=== PATIENT | male | born 1950 | race Caucasian/White ===

== ENCOUNTER 2018-11-12 09:09 | Emergency (ER) | payer MEDICARE, OTHER ==
[~2018-11-12] VITALS: Ht 172.7 cm; Wt 81.6 kg
[2018-11-12 09:17] VITALS: BP 167/87
--- NOTE | 2018-11-12 09:31 | NUR ---
seen and evaluated by dr medrano. medically cleared. d/c home in stable condition.
== END 2018-11-12 09:33 | disposition home or self-care (01) ==
LOC: ER 09:11
DX: Z04.1 Encounter for examination and observation following transport accident (principal); V49.49XA Driver injured in collision with other motor vehicles in traffic accident, initial encounter; Y93.89 Activity, other specified; Y92.413 State road as the place of occurrence of the external cause; Y99.8 Other external cause status
CPT/HCPCS: A4606; Z7610